=== PATIENT | female | born 1990 | race African-American/Black ===

== ENCOUNTER 2019-07-26 14:08 | Emergency (ER) | payer SELFPAY ==
[~2019-07-26] VITALS: Ht 175.3 cm; Wt 88.5 kg
[2019-07-26 14:17] VITALS: BP 116/64
[2019-07-26] MEDS ORDERED: LIDOCAINE 1%-EPI 1:100,000 20 ML VIAL TP ONE (14:30)
[2019-07-26] MEDS ORDERED: TDAP [DIPH/PERTUSSIS/TET] 0.5 ML VIAL IM ONE ×2 (14:30→14:50)
[2019-07-26] MEDS ORDERED: IBUPROFEN 400 MG TABLET PO ONE (14:30)
[2019-07-26] MEDS ORDERED: LIDOCAINE /MPF 1% VIAL 5 ML VIAL ONE (14:31)
[2019-07-26] MEDS ORDERED: IBUPROFEN 400 MG TABLET ONE (14:49)
--- NOTE | 2019-07-26 15:19 | NUR ---
Patient discharged to home in stable condition. Written and verbal after care instructions given. Patient verbalizes understanding of instruction.
--- NOTE | 2019-07-26 15:19 | NUR ---
Patient agrees to follow up in 2 day for wound care agreed
== END 2019-07-26 15:20 | disposition home or self-care (01) ==
LOC: ER 14:14
DX: S01.01XA Laceration without foreign body of scalp, initial encounter (principal); R51 Headache; Y04.8XXA Assault by other bodily force, initial encounter; Y93.89 Activity, other specified; Y92.89 Other specified places as the place of occurrence of the external cause; Y99.8 Other external cause status
CPT/HCPCS: 12002; 90471; 90715; 99283; A6403; J3490